=== PATIENT | female | born 1975 | race Caucasian/White ===

== ENCOUNTER → 2016-08-11 | Outpatient (CLI) | payer OTHER ==
[~2016-08-11] MED LIST: AMOXICILLIN500 M2 PO; AMOXICILLIN500 MG PO; BACTROBAN OINT22 GM PO; BENADRYL25 M1 PO; DAYPRO600 M1 PO; PREDNICOT20 MG PO; ROBAXIN750 MG PO; SEPTRA DS 800 M1 TAB PO; SUBOXONE 2 MG-01 TA2 SL; SUBOXONE 8 MG-21 TAB SL; VICODIN 500 MG-1 TAB PO; XANAX0.25 MG PO
[2016-08-11 10:50] LABS: BASO % 0.4 % (0.0-1.0); EOS # 0.1 10*3/uL (0.0-0.4); EOS % 1.1 % (1.0-4.0); HEMATOCRIT 35.4 % (37.0-47.0); HEMOGLOBIN 11.9 g/dl (12.0-16.0); IG # 0.1 10*3/uL (0.0-0.1); LYMPH # 2.8 10*3/uL (1.3-4.4); LYMPH % 28.8 % (27.0-41.0); MEAN CELL VOLUME 93.7 fl (81.0-99.0); MEAN CORPUSCULAR HGB 31.5 pg (27.0-31.0); MEAN CORPUSCULAR HGB CONC 33.6 g/dl (33.0-37.0); MEAN PLATELET VOLUME 9.8 fl (9.6-12.3); MONO # 0.6 10*3/uL (0.1-1.0); MONO % 6.3 % (3.0-9.0); NEUT # 6.1 10*3/uL (2.3-7.9); NEUT % 62.6 % (47.0-73.0); PLATELET COUNT AUTOMATED 275 10*3/uL (130-400); RED BLOOD COUNT 3.78 10*6/uL (4.10-5.10); WHITE BLOOD COUNT 9.8 10*3/uL (4.8-10.8)
[2016-08-11 11:21] LABS: ALBUMIN 3.6 gm/dl (3.1-4.5); BILIRUBIN, TOTAL 0.2 mg/dl (0.2-1.0); BUN 11 mg/dl (7-24); CARBON DIOXIDE 27 mmol/L (21-32); CHLORIDE 105 mmol/L (98-107); EST GLOM FILT AFRICAN AMERICAN > 60 ml/min; GLUCOSE 84 mg/dL (65-99); POTASSIUM 4.3 mmol/L (3.5-5.1); SGOT/AST 30 IU/L (3-35); SGPT/ALT 42 U/L (12-78); SODIUM 138 mmol/L (136-145); TOTAL PROTEIN 7.1 gm/dL (6.4-8.2)
[2016-08-11 11:30] LABS: ALKALINE PHOSPHATASE 94 U/L (45-117); FREE T4 0.77 ng/dl (0.76-1.46)
== END | disposition home or self-care (01) ==
LOC: US 09:32 → LAB 09:32 → US 10:00
PROVIDERS: Family Medicine
DX: R10.2 Pelvic and perineal pain (principal); R10.30 Lower abdominal pain, unspecified; R63.5 Abnormal weight gain

== ENCOUNTER 2018-01-03 17:15 | Inpatient (IN) | payer OTHER ==
[~2018-01-03] VITALS: Ht 165.1 cm; Wt 68.3 kg
--- NOTE | ~2018-01-03 | O ---
[place], [place] OPERATIVE NOTE NAME: [facility]Z [id number] UNIT #: [id number] ROOM: 411 DOCTOR: NOLVIA DOMINGO,ZOYA BIRTHDATE: [birth year] DOS: 01/05/2018 INDICATIONS: The patient has presented with chief complaint of anorexia and not feeling well to eat and no specific dysphagia. She says she has been losing weight because of not eating. The patient has a history of nicotine and recreational drugs up to recently as well as alcoholic. PROCEDURE: Today's procedure part of investigation is panendoscopy plus biopsy. PREMEDICATION: Propofol. SCOPE: Olympus forward-viewing gastroscope Q10 video. REPORT: After putting the patient in left lateral position and application of lubricant to the scope, the scope was introduced. Thereafter, under direct visualization, passed through the length of esophagus without difficulty. Gastric pouch was entered. Gastritis was noticed. This is bile reflux type. Intensity of gastritis enhances as we approached toward the pyloric ring. Biopsies obtained. Duodenal bulb, second and third parts were carefully examining. There are multiple small superficial ulcerations in duodenum photographed. Air was suctioned out after antral biopsy. The patient extubated, tolerated the procedure well. IMPRESSION: Bile reflux gastritis, multiple small duodenal ulcers. PLAN AND DISCUSSION: Protonix 40 mg or omeprazole 40 mg daily, would suffice management, encouraging the patient to abstain from alcoholic beverages, nicotine product and recreational drugs. Also, I will make arrangement for outpatient colonoscopy to rule out colonic pathology per CT scan concerns. However, this patient does not have diarrhea. Neither does she have blood in the stool grossly and she is going to be fed regular diet and as she tolerates, she can be discharged safely. ZOYA DE SOUZA MD CM:OPRECORD:OPERATIVE NOTE 1708 19 ZOYA DE SOUZA MD 01/05/181719 interface
--- NOTE | ~2018-01-03 | CON ---
[place], [place] REPORT OF CONSULTATION NAME: RAVI VAZQUEZ [facility] #: [id number] UNIT #: [id number] ROOM: 411 DOCTOR: ZOYA DE SOUZA MD BIRTHDATE: [birth year] DOS: 01/05/2018 GASTROENDOSCOPIC CONSULTATION HISTORY OF PRESENT ILLNESS: This is a 42-year-old patient who presented with chief complaint of dysphagia and some weight loss she claims. She came to the Emergency Room as was found to have a panel of blood work, in which the white blood cell was 8.2, H and H 14 and 42. Lactic acid was normal. INR was normal. Comprehensive metabolic panel, electrolyte imbalance, and basic metabolic were within normal limits. Liver function test normal. Beta hCG less than 1. Troponin was normal. Ethyl alcohol level is less than 3. Troponin repeat again was normal. CT scan of the chest, abdomen, and pelvis was done. Findings suggestive of acute segmental colitis extending from cecum to mid transverse colon. However, the patient does not have any complaint of abdominal pain and diarrhea. CBC differential remains normal. Basic metabolic remains normal. Urine culture, no growth. Ultrasound of the renal, no hydronephrosis. PAST MEDICAL HISTORY: Associated with cephalalgia, sinusitis. SOCIAL HISTORY: Has stopped smoking. She says she does not drink alcohol. She denies recreational drugs. PAST SURGICAL HISTORY: Cystectomy of the ovary. FAMILY HISTORY: Myocardial infarction and cerebrovascular accidents. REVIEW OF SYSTEMS: HEENT: Denies double vision, blurred vision. RESPIRATORY: Denies shortness of breath in acute form; however, nonspecific shortness of breath. CARDIOVASCULAR: Denies chest pain. DIGESTIVE SYSTEM: Complaints of dysphagia and anorexia. PHYSICAL EXAMINATION: VITAL SIGNS: Stable. HEENT: Within normal limit. Mouth: Poor dental hygiene. Eyes: Pupils round, reactive. Sclerae nonicteric. NECK: Supple, no thyromegaly, no cervical lymphadenopathy. CHEST: Symmetric anatomy, equal expansion. No wheeze, no rhonchi. HEART: Normal sinus rhythm, no gallop, no murmur. ABDOMEN: Soft. No hepato-organomegaly. Bowel sounds present. No pulsatile mass. EXTREMITIES: No cyanosis, no pedal edema. NEUROLOGIC: Alert and oriented to time, place, and person. IMPRESSION: Anorexia, dysphagia, and weight loss. The patient with abnormal CT scan of the abdomen and thickening of gastric folds. PLAN AND DISCUSSION: We are going to organize an EGD as far as the CT scan of the abdomen and pelvis is concerned, the patient does not manifest any [place], [place] REPORT OF CONSULTATION NAME: RAVI VAZQUEZ UNIT #: [id number] ROOM: 411 DOCTOR: ZOYA DE SOUZA MD BIRTHDATE: [birth year] symptomatology. Therefore, this can be addressed as an outpatient on followup. She does not have leukocytosis. She does not have any evidence of acute abdomen and workup in progress. Thank you very much indeed. EGD today. ZOYA DE SOUZA MD CM:CONSTR:REPORT OF CONSULTATION 1650 01/06/18 0119 interface
--- NOTE | ~2018-01-03 | EKG ---
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
[2018-01-03 17:16] VITALS: BP 144/111
[2018-01-03 17:32] VITALS: BP 125/75
[2018-01-03 17:57] LABS: BASO % 0.5 % (0.0-1.0); EOS # 0.1 10*3/uL (0.0-0.4); HEMATOCRIT 42.9 % (37.0-47.0); HEMOGLOBIN 14.3 g/dl (12.0-16.0); LYMPH % 24.8 % (27.0-41.0); MEAN CELL VOLUME 91.3 fl (81.0-99.0); MEAN CORPUSCULAR HGB 30.4 pg (27.0-31.0); MEAN CORPUSCULAR HGB CONC 33.3 g/dl (33.0-37.0); MEAN PLATELET VOLUME 10.3 fl (9.6-12.3); MONO # 0.7 10*3/uL (0.1-1.0); MONO % 8.4 % (3.0-9.0); NEUT # 5.4 10*3/uL (2.3-7.9); NEUT % 65.1 % (47.0-73.0); PLATELET COUNT AUTOMATED 362 10*3/uL (130-400); RED CELL DISTRI WIDTH 13.7 % (0-14.5); WHITE BLOOD COUNT 8.2 10*3/uL (4.8-10.8)
[2018-01-03 18:17] LABS: ACT PARTIAL THROMBO TIME 23.4 SECONDS (20.8-31.5); INTERNATIONAL NORM RATIO 1.1 (2.0-3.5)
[2018-01-03 18:18] LABS: ALBUMIN 4.6 gm/dl (3.1-4.5); ALKALINE PHOSPHATASE 108 U/L (45-117); BUN 10 mg/dl (7-24); CHLORIDE 106 mmol/L (98-107); CREATININE 0.79 mg/dL (0.55-1.02); LIPASE 74 U/L (73-393); POTASSIUM 3.4 mmol/L (3.5-5.1); SGOT/AST 21 IU/L (3-35); SGPT/ALT 28 U/L (12-78); SODIUM 138 mmol/L (136-145); TOTAL PROTEIN 8.1 gm/dL (6.4-8.2)
[2018-01-03 18:19] LABS: BETA-HCG, QUANT < 1.0 mIU/mL (1-3); TROPONIN I < 0.015 ng/ml (<0.045)
[2018-01-03 18:20] VITALS: BP 128/87
[2018-01-03 19:53] VITALS: BP 127/84
[2018-01-04] VITALS: BP 130/84
[2018-01-04 06:52] LABS: BASO # 0.1 10*3/uL (0.0-0.1); BASO % 0.7 % (0.0-1.0); EOS # 0.1 10*3/uL (0.0-0.4); HEMATOCRIT 37.3 % (37.0-47.0); LYMPH # 2.7 10*3/uL (1.3-4.4); LYMPH % 39.9 % (27.0-41.0); MEAN CORPUSCULAR HGB 30.7 pg (27.0-31.0); MEAN CORPUSCULAR HGB CONC 32.7 g/dl (33.0-37.0); MONO # 0.7 10*3/uL (0.1-1.0); MONO % 9.6 % (3.0-9.0); NEUT # 3.3 10*3/uL (2.3-7.9); NEUT % 48.7 % (47.0-73.0); PLATELET COUNT AUTOMATED 291 10*3/uL (130-400); RED BLOOD COUNT 3.97 10*6/uL (4.10-5.10); RED CELL DISTRI WIDTH 13.7 % (0-14.5); WHITE BLOOD COUNT 6.9 10*3/uL (4.8-10.8)
[2018-01-04 06:56] LABS: ALBUMIN 3.7 gm/dl (3.1-4.5); ALKALINE PHOSPHATASE 83 U/L (45-117); BUN 11 mg/dl (7-24); CHLORIDE 108 mmol/L (98-107); CREATININE 0.77 mg/dL (0.55-1.02); FREE T4 1.01 ng/dl (0.76-1.46); POTASSIUM 2.9 mmol/L (3.5-5.1); SGOT/AST 17 IU/L (3-35); SGPT/ALT 24 U/L (12-78); SODIUM 143 mmol/L (136-145); TOTAL PROTEIN 6.7 gm/dL (6.4-8.2)
[2018-01-04 07:06] LABS: HEMOGLOBIN 12.2 g/dl (12.0-16.0)
[2018-01-04 12:00] VITALS: BP 110/73
[2018-01-04 15:19] LABS: BILIRUBIN 1+ (NEGATIVE); BLOOD 2+ (NEGATIVE); CLARITY CLEAR (CLEAR); COLOR YELLOW (YELLOW); GLUCOSE NEGATIVE (NEGATIVE); KETONE 3+ (NEGATIVE); LEUKO ESTERASE NEGATIVE (NEGATIVE); NITRITE NEGATIVE (NEGATIVE); SPECIFIC GRAVITY >= 1.030 (1.005-1.030); UROBILINOGEN 0.2 E.U./dl (0.2-1.0)
[2018-01-04 15:29] LABS: URINE AMPHETAMINES < 1000 (1000ng/ml); URINE BARBITURATES < 200 (200ng/ml); URINE BENZODIAZEPINES > 200 (200ng/ml); URINE CANNABINOIDS (THC) < 50 (50ng/ml); URINE COCAINE > 300 (300ng/ml); URINE METHADONE < 300 (300ng/ml); URINE OPIATES < 300 (300ng/ml); WBC 0-2 wbc/hpf (0-5)
[2018-01-04 15:30] LABS: BACTERIA 2+; MUCOUS TRACE
[2018-01-04 15:31] LABS: URINE PHENCYCLIDINE < 25 (25ng/ml)
[2018-01-04 16:00] VITALS: BP 126/79
[2018-01-04 20:00] VITALS: BP 117/74
[2018-01-05] VITALS (7 sets, daily range): BP systolic 105–130; BP diastolic 68–81
[2018-01-05 07:45] LABS: BASO % 0.6 % (0.0-1.0); EOS # 0.1 10*3/uL (0.0-0.4); HEMATOCRIT 37.2 % (37.0-47.0); HEMOGLOBIN 12.2 g/dl (12.0-16.0); LYMPH # 2.7 10*3/uL (1.3-4.4); LYMPH % 37.5 % (27.0-41.0); MEAN CELL VOLUME 92.3 fl (81.0-99.0); MEAN CORPUSCULAR HGB 30.3 pg (27.0-31.0); MEAN CORPUSCULAR HGB CONC 32.8 g/dl (33.0-37.0); MONO # 0.7 10*3/uL (0.1-1.0); MONO % 9.5 % (3.0-9.0); NEUT # 3.7 10*3/uL (2.3-7.9); NEUT % 51.1 % (47.0-73.0); PLATELET COUNT AUTOMATED 297 10*3/uL (130-400); RED BLOOD COUNT 4.03 10*6/uL (4.10-5.10); RED CELL DISTRI WIDTH 13.3 % (0-14.5); WHITE BLOOD COUNT 7.1 10*3/uL (4.8-10.8)
[2018-01-05 08:14] LABS: CHLORIDE 107 mmol/L (98-107); POTASSIUM 3.3 mmol/L (3.5-5.1); SODIUM 139 mmol/L (136-145)
[2018-01-05 08:20] LABS: BUN 9 mg/dl (7-24); CREATININE 0.69 mg/dL (0.55-1.02)
[2018-01-06] VITALS: BP 111/67
[2018-01-06 06:25] LABS: BASO % 0.4 % (0.0-1.0); EOS # 0.1 10*3/uL (0.0-0.4); EOS % 0.7 % (1.0-4.0); HEMATOCRIT 36.2 % (37.0-47.0); HEMOGLOBIN 12.1 g/dl (12.0-16.0); LYMPH # 2.8 10*3/uL (1.3-4.4); LYMPH % 35.1 % (27.0-41.0); MEAN CELL VOLUME 92.3 fl (81.0-99.0); MEAN CORPUSCULAR HGB 30.9 pg (27.0-31.0); MEAN CORPUSCULAR HGB CONC 33.4 g/dl (33.0-37.0); MEAN PLATELET VOLUME 11.2 fl (9.6-12.3); MONO # 0.9 10*3/uL (0.1-1.0); MONO % 10.9 % (3.0-9.0); NEUT # 4.2 10*3/uL (2.3-7.9); NEUT % 52.7 % (47.0-73.0); PLATELET COUNT AUTOMATED 271 10*3/uL (130-400); RED BLOOD COUNT 3.92 10*6/uL (4.10-5.10); RED CELL DISTRI WIDTH 13.7 % (0-14.5)
[2018-01-06 06:53] LABS: ALBUMIN 3.7 gm/dl (3.1-4.5); ALKALINE PHOSPHATASE 86 U/L (45-117); BUN 15 mg/dl (7-24); CHLORIDE 105 mmol/L (98-107); CREATININE 0.71 mg/dL (0.55-1.02); POTASSIUM 3.3 mmol/L (3.5-5.1); SGOT/AST 15 IU/L (3-35); SGPT/ALT 22 U/L (12-78); SODIUM 141 mmol/L (136-145); TOTAL PROTEIN 6.4 gm/dL (6.4-8.2)
[2018-01-06 08:00] VITALS: BP 116/68
[2018-01-06 12:00] VITALS: BP 104/92
[2018-01-06 16:00] VITALS: BP 108/73
[2018-01-06 20:00] VITALS: BP 127/78
[2018-01-07] VITALS: BP 109/86
[2018-01-07 08:00] VITALS: BP 106/50
[2018-01-07 12:00] VITALS: BP 115/77
[2018-01-07] MEDS ORDERED: CARAFATE1 GM PO (13:57)
[2018-01-07] MEDS ORDERED: OMEPRAZOLE40 MG PO (13:57)
[2018-01-07] MEDS ORDERED: FLAGYL500 MG PO (13:58)
== END 2018-01-07 13:20 | disposition left against medical advice (07) | DRG 384 ==
LOC: ED 17:15 → 4E 19:11 → EDHOLD 19:11 → 4E 19:31
PROVIDERS: Emergency Medicine; Family Medicine; Internal Medicine; Nurse Practitioner
PROC: 0DB68ZX Excision of Stomach, Via Natural or Artificial Opening Endoscopic, Diagnostic (ICD-10-PCS; principal; 2018-01-05)
DX: K26.9 Duodenal ulcer, unspecified as acute or chronic, without hemorrhage or perforation (principal); K52.9 Noninfective gastroenteritis and colitis, unspecified; K29.80 Duodenitis without bleeding; R55 Syncope and collapse; K29.70 Gastritis, unspecified, without bleeding; E87.6 Hypokalemia; R13.10 Dysphagia, unspecified; E83.41 Hypermagnesemia; F41.9 Anxiety disorder, unspecified; R53.83 Other fatigue; R63.4 Abnormal weight loss; Z68.25 Body mass index [BMI] 25.0-25.9, adult

== ENCOUNTER 2019-02-16 11:01 | Emergency (ER) | payer OTHER ==
[~2019-02-16] VITALS: Ht 165.1 cm; Wt 82.6 kg
[~2019-02-16 11:01] MED LIST changes: +CARAFATE1 GM PO; +FLAGYL500 MG PO; +OMEPRAZOLE40 MG PO
[2019-02-16 11:36] LABS: BASO % 0.3 % (0.0-1.0); EOS % 0.3 % (1.0-4.0); HEMATOCRIT 37.5 % (37.0-47.0); LYMPH # 2.5 10*3/uL (1.3-4.4); LYMPH % 21.2 % (27.0-41.0); MEAN CELL VOLUME 92.4 fl (81.0-99.0); MEAN CORPUSCULAR HGB CONC 34.7 g/dl (33.0-37.0); MEAN PLATELET VOLUME 9.3 fl (9.6-12.3); MONO # 0.7 10*3/uL (0.1-1.0); MONO % 6.2 % (3.0-9.0); NEUT # 8.3 10*3/uL (2.3-7.9); NEUT % 71.7 % (47.0-73.0); PLATELET COUNT AUTOMATED 390 10*3/uL (130-400); RED BLOOD COUNT 4.06 10*6/uL (4.10-5.10); RED CELL DISTRI WIDTH 13.2 % (0-14.5); WHITE BLOOD COUNT 11.6 10*3/uL (4.8-10.8)
[2019-02-16 11:57] LABS: ALBUMIN 4.2 gm/dl (3.1-4.5); ALKALINE PHOSPHATASE 132 U/L (45-117); BUN 14 mg/dl (7-24); CHLORIDE 107 mmol/L (98-107); CREATININE 0.89 mg/dL (0.55-1.02); POTASSIUM 3.5 mmol/L (3.5-5.1); SGOT/AST 28 IU/L (3-35); SGPT/ALT 39 U/L (12-78); SODIUM 142 mmol/L (136-145)
[2019-02-16 11:59] LABS: ACT PARTIAL THROMBO TIME 23.9 SECONDS (20.0-32.1); INTERNATIONAL NORM RATIO 0.9 (2.0-3.5); TROPONIN I < 0.015 ng/ml (<0.045)
[2019-02-16 12:01] LABS: BILIRUBIN NEGATIVE (NEGATIVE); BLOOD 2+ (NEGATIVE); CLARITY SL CLOUDY (CLEAR); COLOR YELLOW (YELLOW); GLUCOSE NEGATIVE (NEGATIVE); KETONE 2+ (NEGATIVE); LEUKO ESTERASE NEGATIVE (NEGATIVE); NITRITE NEGATIVE (NEGATIVE); PH >= 9.0 (5.0-9.0); UROBILINOGEN 0.2 E.U./dl (0.2-1.0)
[2019-02-16 12:12] LABS: URINE AMPHETAMINES < 1000 (1000ng/ml); URINE BARBITURATES < 200 (200ng/ml); URINE BENZODIAZEPINES < 200 (200ng/ml); URINE CANNABINOIDS (THC) > 50 (50ng/ml); URINE COCAINE > 300 (300ng/ml); URINE METHADONE < 300 (300ng/ml); URINE OPIATES < 300 (300ng/ml); URINE PHENCYCLIDINE < 25 (25ng/ml)
[2019-02-16 12:26] VITALS: BP 133/75
[2019-02-16 12:27] LABS: RBC 16-20 rbc/hpf (0-2)
[2019-02-16 12:28] LABS: BACTERIA 1+; MUCOUS TRACE
[2019-02-16] MEDS ORDERED: AMOXICILLIN500 M3 PO (15:06)
[2019-02-16] MEDS ORDERED: PREDNISONE20 M1 PO (15:06)
[2019-02-16] MEDS ORDERED: PROVENTIL HFA6.7 GM INH (15:06)
== END 2019-02-16 15:15 | disposition home or self-care (01) ==
LOC: ED 11:01
PROVIDERS: Emergency Medicine; Nurse Practitioner Family
DX: H66.93 Otitis media, unspecified, bilateral (principal); J20.9 Acute bronchitis, unspecified; F17.200 Nicotine dependence, unspecified, uncomplicated; Z79.899 Other long term (current) drug therapy

== ENCOUNTER 2019-03-15 17:17 | Emergency (ER) | payer OTHER ==
[~2019-03-15] VITALS: Ht 165.1 cm; Wt 81.6 kg
[~2019-03-15 17:17] MED LIST changes: +AMOXICILLIN500 M3 PO; +PREDNISONE20 M1 PO; +PROVENTIL HFA6.7 GM INH
[2019-03-15 17:23] VITALS: BP 138/66
== END 2019-03-15 19:16 | disposition home or self-care (01) ==
LOC: ED 17:17
DX: B07.0 Plantar wart (principal)

== ENCOUNTER 2023-04-15 12:47 | Emergency (ER) | payer OTHER ==
[~2023-04-15] VITALS: Ht 167.6 cm; Wt 83.9 kg
[2023-04-15 12:55] VITALS: BP 133/83
[2023-04-15] MEDS ORDERED: VIBRAMYCIN100 MG PO (13:39)
== END 2023-04-15 14:04 | disposition home or self-care (01) ==
LOC: ED 12:47
DX: L03.311 Cellulitis of abdominal wall (principal); F41.9 Anxiety disorder, unspecified; Z79.899 Other long term (current) drug therapy

== ENCOUNTER → 2023-04-19 | Outpatient (CLI) | payer OTHER ==
[~2023-04-19] MED LIST changes: +VIBRAMYCIN100 MG PO
== END | disposition home or self-care (01) ==
LOC: WOUNDCARE 00:22
PROVIDERS: ATTEND Nurse Practitioner Family
DX: T80.29XA Infection following other infusion, transfusion and therapeutic injection, initial encounter (principal); L03.311 Cellulitis of abdominal wall; S31.109A Unspecified open wound of abdominal wall, unspecified quadrant without penetration into peritoneal cavity, initial encounter; F41.9 Anxiety disorder, unspecified; F17.290 Nicotine dependence, other tobacco product, uncomplicated; X58.XXXA Exposure to other specified factors, initial encounter; Y83.8 Other surgical procedures as the cause of abnormal reaction of the patient, or of later complication, without mention of misadventure at the time of the procedure; Y92.89 Other specified places as the place of occurrence of the external cause; Y93.89 Activity, other specified; Y99.8 Other external cause status